=== PATIENT | female | born 1975 | race Caucasian/White ===

== ENCOUNTER 2017-04-11 17:48 | Emergency (ER) | payer SELFPAY ==
[~2017-04-11] VITALS: Ht 160 cm; Wt 133.8 kg
[~2017-04-11 17:48] MED LIST: AMOXIL500 MG PO; ANAPROX DS550 MG PO; ATARAX25 MG PO; CIPROFLOXACIN500 MG PO; DURICEF500 MG PO; OMNICEF125 MG/5 M PO; PREDNICOT20 MG PO; PRENATAL1 TAB PO; ZITHROMAX Z PA250 MG PO
[2017-04-11 17:56] VITALS: BP 148/77
[2017-04-11 18:20] LABS: BASO % 0.2 % (0.0-1.0); EOS % 0.4 % (1.0-4.0); HEMATOCRIT 33.2 % (37.0-47.0); HEMOGLOBIN 10.7 g/dl (12.0-16.0); LYMPH # 1.8 10*3/uL (1.3-4.4); LYMPH % 18.2 % (27.0-41.0); MEAN CELL VOLUME 84.1 fl (81.0-99.0); MEAN CORPUSCULAR HGB 27.1 pg (27.0-31.0); MEAN CORPUSCULAR HGB CONC 32.2 g/dl (33.0-37.0); MEAN PLATELET VOLUME 10.2 fl (9.6-12.3); MONO # 0.7 10*3/uL (0.1-1.0); MONO % 7.3 % (3.0-9.0); NEUT # 7.4 10*3/uL (2.3-7.9); NEUT % 73.3 % (47.0-73.0); PLATELET COUNT AUTOMATED 220 10*3/uL (130-400); RED BLOOD COUNT 3.95 10*6/uL (4.10-5.10); RED CELL DISTRI WIDTH 14.7 % (0-14.5); WHITE BLOOD COUNT 10.1 10*3/uL (4.8-10.8)
[2017-04-11 18:36] LABS: ALBUMIN 2.4 gm/dl (3.1-4.5); ALKALINE PHOSPHATASE 79 U/L (45-117); BUN 9 mg/dl (7-24); CHLORIDE 107 mmol/L (98-107); CREATININE 0.58 mg/dL (0.55-1.02); LIPASE 159 U/L (73-393); POTASSIUM 3.8 mmol/L (3.5-5.1); SGOT/AST 12 IU/L (3-35); SGPT/ALT 17 U/L (12-78); SODIUM 139 mmol/L (136-145); TOTAL PROTEIN 6.7 gm/dL (6.4-8.2)
[2017-04-11 18:53] LABS: BILIRUBIN NEGATIVE (NEGATIVE); BLOOD NEGATIVE (NEGATIVE); CLARITY SL CLOUDY (CLEAR); COLOR YELLOW (YELLOW); GLUCOSE NEGATIVE (NEGATIVE); KETONE NEGATIVE (NEGATIVE); LEUKO ESTERASE NEGATIVE (NEGATIVE); NITRITE NEGATIVE (NEGATIVE); UROBILINOGEN 0.2 E.U./dl (0.2-1.0)
[2017-04-11 19:10] LABS: BACTERIA TRACE; EPITHELIAL CELLS TNTC; RBC 0-2 rbc/hpf (0-2); WBC 0-2 wbc/hpf (0-5)
== END 2017-04-11 21:25 | disposition home or self-care (01) ==
LOC: ED 17:48
PROVIDERS: Nurse Practitioner Family
DX: O26.853 Spotting complicating pregnancy, third trimester (principal); Z3A.29 29 weeks gestation of pregnancy

== ENCOUNTER → 2020-03-27 | Outpatient (CLI) | payer SELFPAY ==
[~2020-03-27] MED LIST changes: +AUGMENTIN 875875 MG PO; +NORETHINDRONE0.35 M1 PO; +PREDNISONE20 M1 PO
== END | disposition home or self-care (01) ==
LOC: COVID19 14:12
PROVIDERS: ATTEND Internal Medicine
DX: U07.1 COVID-19 (principal)

== ENCOUNTER 2020-08-11 05:37 | Emergency (ER) | payer SELFPAY ==
[~2020-08-11] VITALS: Ht 157.4 cm; Wt 124.7 kg
[2020-08-11 07:21] VITALS: BP 117/57
== END 2020-08-11 07:45 | disposition home or self-care (01) ==
LOC: ED 05:37
DX: M75.51 Bursitis of right shoulder (principal); Z79.899 Other long term (current) drug therapy